=== PATIENT | female | born 1940 | race Caucasian/White ===

== ENCOUNTER → 2018-07-09 | Day surgery (SDC) | payer MEDICARE, OTHER ==
[2018-07-06 12:50] LABS: BASOPHILS % 0.4 % (0.0-1.0); EOSINOPHILS # (AUTO) 0.1 (0.0-0.4); EOSINOPHILS % 1.9 % (0.0-6.0); HEMATOCRIT 37.1 % (34.2-44.1); HEMOGLOBIN 12.8 g/dL (12.0-16.0); LYMPHOCYTES # (AUTO) 2.1 (1.0-3.2); LYMPHOCYTES % 43.5 % (18.0-39.1); MEAN CORPUSCULAR HEMOGLOBIN 34.7 pg (28-32); MEAN CORPUSCULAR HGB CONC 34.5 g/dL (31-35); MEAN CORPUSCULAR VOLUME 100.5 fL (81-99); MONOCYTES # (AUTO) 0.4 (0.2-0.8); MONOCYTES % 8.7 % (4.4-11.3); NEUTROPHILS # (AUTO) 2.2 (2.1-6.9); NEUTROPHILS % 45.3 % (38.7-80.0); PLATELET COUNT 215 x10e3/uL (140-360); RED BLOOD COUNT 3.69 x10e6/uL (3.6-5.1); RED CELL DISTRIBUTION WIDTH 13.1 % (11.7-14.4)
--- NOTE | 2018-07-06 13:06 | Diagnostic Imaging Report ---
EXAMINATION: CHEST 2 VIEWS INDICATION: Urology surgery. ^PRE ADMIT COMPARISON: None FINDINGS: TUBES and LINES: None. LUNGS: Lungs are well inflated. Lungs are clear. There is no evidence of pneumonia or pulmonary edema. PLEURA: No pleural effusion or pneumothorax. HEART AND MEDIASTINUM: The cardiomediastinal silhouette is unremarkable. BONES AND SOFT TISSUES: No acute osseous lesion. Soft tissues are unremarkable. Chronic appearing deformity of several of the lower thoracic vertebral bodies. UPPER ABDOMEN: No free air under the diaphragm. IMPRESSION: No acute thoracic abnormality. Signed by: Dr. Arnold Geronimo M.D. on 07/06/2018 1:03 PM
[2018-07-06 13:15] LABS: ALANINE AMINOTRANSFERASE 24 IU/L (0-55); ALBUMIN 3.6 g/dL (3.5-5.0); ALBUMIN/GLOBULIN RATIO 1.2 (0.8-2.0); ALKALINE PHOSPHATASE 123 IU/L (40-150); ANION GAP 11.4 mmol/L (8-16); BLOOD UREA NITROGEN 14 mg/dL (7-26); BUN/CREATININE RATIO 19 (6-25); CALCIUM 9.6 mg/dL (8.4-10.2); CARBON DIOXIDE 24 mmol/L (22-29); CHLORIDE 112 mmol/L (98-107); CREATININE, SERUM 0.73 mg/dL (0.57-1.11); EST GLOMERULAR FILTRATION RATE > 60 ML/MIN (60-); GLUCOSE 101 mg/dL (74-118); POTASSIUM 4.4 mmol/L (3.5-5.1); SODIUM 143 mmol/L (136-145)
[~2018-07-09] MED LIST: ASPIRIN81 MG; CLONIDINE HCL0.1 MG PO; DEXAMETHASONE SOD PHOS INJ 4 MG/ML VIAL ONE; FENTANYL CITRATE/PF 100MCG/2 ML INJ ONE; FLECTOR1 EACH; LABETALOL HCL 20 ML ONE; LIDOCAINE HCL 2% LOCAL INJ 5 ML SDV VIAL INJ ONE; METOPROLOL TART25 MG PO; MONTELUKAST SOD10 MG PO; ONDANSETRON HCL INJ 2MG/ML 2ML 2 MG/ML VIAL ONE; PRAVASTATIN SOD40 MG; PRIMIDONE1 GM; PROPOFOL IV EMULSION 10 MG/ML 20 ML VIAL ONE; SEVOFLURANE INHAL SOLN 250 ML PEN BTL ONE; TOPIRAMATE25 MG PO; Z.0.RAMIPRIL5 MG PO; Z.0.SYNTHROID75 MCG PO; [UNRECOGNIZED DRUG - CODE]; [UNRECOGNIZED DRUG - OTHER] PO; [UNRECOGNIZED DRUG - REMARK] PO
--- OUTSIDE RECORDS SUMMARY | 2018-07-09 08:50 | XMS REPORT | Continuity of Care Document ---
Author Author Haven sanz Organization Interface Address Unknown Phone Unavailable Problems Problem Status Onset Date Classification Date Reported Comments Source M25.551 - PAIN IN RIGHT HIP M25.552 - PA Active 03/11/2016 [facility] Medications Medication Details Route Status Patient Instructions Ordering Provider Order Date Source Allergies, Adverse Reactions, Alerts Substance Category Reaction Severity Reaction type Status Date Reported Comments Source Immunizations Immunization Date Given Site Status Last Updated Comments Source Results Order Name Results Value Reference Range Date Interpretation Comments Source Spine lumbar series DX Spine lumbar series DX EXAM: XR Spine lumbar series DX DATE: 03/11/2016 10:09 AM [facility] INDICATION: M54.5 Low back pain Pain. COMPARISON: None available TECHNIQUE: AP, lateral and coned-down lateral projections of lumbar spine. DISCUSSION: No acute fracture is identified. Scoliosis is seen is L2 with convexity to the left. Multilevel diffuse degenerative changes are present. There is grade 1 listhesis of L5 over S1. No soft tissue abnormality is identified. . IMPRESSION: Multilevel diffuse degenerative changes and scoliosis. Grade 1 listhesis. . 03/11/2016 - - Read by: Robin Moran MD Dictated Date/time: 03/11/16 12:27 Electronically Signed by: Robin Moran MD 03/11/16 12:29 FINAL REPORT [facility] Hip bilat w pelvis and both lat hips DX Hip bilat w pelvis and both lat hips DX EXAM: XR BILATERAL HIP 2 VIEWS DATE: 03/11/2016 10:09 AM [facility] INDICATION: M25.552 Pain in left hip COMPARISON: None TECHNIQUE: 2 views of each hip, including the pelvis Laterality: Bilateral FINDINGS: No acute fracture or malalignment is identified. Mild degenerative changes are seen involving bilateral hips. No soft tissue abnormality is identified. IMPRESSION: Mild degenerative changes of bilateral hips. 03/11/2016 - - Read by: Robin Moran MD Dictated Date/time: 03/11/16 12:30 Electronically Signed by: Robin Moran MD 03/11/16 12:31 FINAL REPORT [facility] Vital Signs Vital Sign Value Date Comments Source Encounters Location Location Details Encounter Type Encounter Number Reason For Visit Attending Provider ADM Date DC Date Status Source [facility] [place] [facility] [id number] Do Truong 03/11/2016 03/12/2016 [facility] [place] Procedures Procedure Code Date Perfomer Comments Source
--- OUTSIDE RECORDS SUMMARY | 2018-07-09 08:50 | XMS REPORT ---
[facility] Address Unknown Phone Unavailable Care Team Providers Care Entertainer & Comic Name Role Phone ANJELICA PETERSON Unavailable Unavailable Problems This patient has no known problems. Allergies, Adverse Reactions, Alerts This patient has no known allergies or adverse reactions. Medications This patient has no known medications. Results Test Description Test Time Test Comments Text Results Atomic Results Result Comments CHEST 2 VIEWS 2018-07-06 13:02:00 [place] [id number] Patient Name: LESVIA AUGUSTINE MR #: [id number] : 1940 Age/Sex: 77/F Req #: [id number] Adm Physician: Ordered by: ANJELICA PETERSON MD Report #: [id number] Location: OR Room/Bed: Procedure: [id number] DX/CHEST 2 VIEWS Exam Date: Exam Time: REPORT STATUS: Signed EXAMINATION: CHEST 2 VIEWS INDICATION: Urology surgery. PRE ADMIT COMPARISON: None FINDINGS: TUBES and LINES: None. LUNGS: Lungs are well inflated. Lungs are clear. There is no evidence of pneumonia or pulmonary edema. PLEURA: No pleural effusion or pneumothorax. HEART AND MEDIASTINUM: The cardiomediastinal silhouette is unremarkable. BONES AND SOFT TISSUES: No acute osseous lesion. Soft tissues are unremarkable. Chronic appearing deformity of several of the lower thoracic vertebral bodies. UPPER ABDOMEN: No free air under the diaphragm. IMPRESSION: No acute thoracic abnormality. Signed by: Dr. Arnold Geronimo M.D. on 07/06/2018 1:03 PM Dictated By: ARNOLD GERONIMO MD, MD [id number] Transcribed By: CLAIR on 07/06/18 1305 COPY TO: ANJELICA PETERSON MD
--- OUTSIDE RECORDS SUMMARY | 2018-07-09 08:50 | XMS REPORT | Summary of Care ---
Author Author [facility] Outpatient Imaging [facility] Outpatient [facility] Address Unknown Phone Unavailable Encounter HQ Encntr_alikory(FIN) [id number] Date(s): 03/11/16 - 03/11/16 [facility] Outpatient Imaging [facility] [address], [address] [place] [phone] Discharge Disposition: Home or Self Care Attending Physician: Do Truong MD Vital Signs No data available for this section Problem List No data available for this section Allergies, Adverse Reactions, Alerts No data available for this section Medications No data available for this section Results No data available for this section Immunizations No data available for this section Procedures No data available for this section Social History No data available for this section Assessment and Plan No data available for this section
[2018-07-09 14:30] VITALS: BP 157/88
--- NOTE | 2018-08-04 00:03 | Operative Report ---
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 OPERATION PERFORMED: Cystoscopy and transurethral Coaptite injection. ANESTHESIA: Anesthesia staff, general. FINDINGS: The bladder neck and urethra were opened. Bladder showed no signs of tumor, stones or foreign objects. There is minimal trabeculation of the bladder. Both ureteral orifices were normal position and clear efflux was seen bilaterally. DESCRIPTION OF PROCEDURE: With the patient under satisfactory general anesthesia, the patient was placed in the supine position on the operating table. Legs were placed on steroids. Genitalia was then prepped with Betadine soap and solution and draped in usual manner. A #22-Filipino cystourethroscope was passed per urethra. Inspection was performed with a 12 degrees angle lens. The Coaptite still needle was then introduced through the working channel of the cystoscope and having loaded up a 1 mL coapted syringe. A 1 mL was injected on the right side approximately 3-4 mm away from the bladder neck. The injection was done submucosally and it was noted that the mucosa of the tissues around it were somewhat hard. The patient has had several Coaptite injections in the past. Once that was done, the same thing was done over on the opposite side laterally at the 6o'clock and 3 o'clock position. The bladder neck was still not closed, so I introduced another Coaptite and given her another mL at the 6 o'clock position that created more of a complete closure with the blebs of the Coaptite being seen. At this point, instruments were removed. The patient was taken to the recovery room in satisfactory condition. DISCHARGE INSTRUCTIONS: The patient was given Keflex to take one b.i.d. Instructions were to see if the patient voided and to check her postvoid residual. If the postvoid residual was over 150 mL, the nurses were to call me with an advice as to whether to put a catheter in or not. If the residual was too high, I would order a 12-Filipino Degroot catheter to be placed in and the patient to see me in the morning to remove the Degroot catheter. Dany Gustafson MD RRG/MODL /[id number]
== END | disposition home or self-care (01) ==
LOC: OR 08:48
PROVIDERS: ATTEND Urology
DX: N39.46 Mixed incontinence (principal); N36.42 Intrinsic sphincter deficiency (ISD); N32.89 Other specified disorders of bladder; N39.0 Urinary tract infection, site not specified; G47.33 Obstructive sleep apnea (adult) (pediatric); I10 Essential (primary) hypertension; Z88.6 Allergy status to analgesic agent; Z88.1 Allergy status to other antibiotic agents; Z88.2 Allergy status to sulfonamides; Z01.810 Encounter for preprocedural cardiovascular examination; Z01.812 Encounter for preprocedural laboratory examination; Z01.818 Encounter for other preprocedural examination; Z79.82 Long term (current) use of aspirin; Z68.32 Body mass index [BMI] 32.0-32.9, adult
CPT/HCPCS: 36415; 51715; 71046; 80053; 85025; 87086; 87186; 93005; J1100; J2001; J2405; J2704; J3490; L8606